=== PATIENT | male | born 1950 | race Caucasian/White ===

== ENCOUNTER 2017-03-30 15:17 | Day surgery (SDC) | payer BC, MEDICARE ==
[2017-03-30] MEDS ORDERED: FENTANYL CITRATE INJ/PF 100 MCG/2 ML AMPUL ONE (15:34)
[2017-03-30] MEDS ORDERED: NALOXONE HCL INJ/PF 0.4 MG/1 ML SDV ONE (15:34)
[2017-03-30] MEDS ORDERED: FLUMAZENIL INJ 0.5 MG/5 ML VIAL ONE (15:35)
[2017-03-30] MEDS ORDERED: EPINEPHRINE INJ 1 MG/10 ML DISP.SYRIN ONE (15:35)
[2017-03-30] MEDS ORDERED: GLUCAGON,HUMAN RECOMB 1 MG INJ ONE (15:35)
[2017-03-30] MEDS: MIDAZOLAM 2 MG/2 ML INJ ONE ×3 (16:35→16:44)
--- NOTE | 2017-03-30 17:13 | Operative Report ---
Operative Report DATE OF SURGERY: 03/30/17 Operative Report: Pre-op diagnosis: History of large esophageal varices intolerant to beta- blockers Post-op diagnosis: Large mid and distal esophageal varices grade F3 Surgery: Esophagogastroduodenoscopy with esophageal variceal banding Medications: Versed 4mg Fentanyl 100mcg IV push Tissue removed: None Procedure: After informed consent obtained from patient, the throat was sprayed with Hurricane and conscious sedation was achieved. The upper endoscope was inserted into the esophagus under direct vision and advanced into the stomach. The duodenum was entered and examined to the second part. Endoscope was then slowly pulled out of the patient as the mucosa was examined into details. The Brndstr rubber band kit was then loaded and the scope were inserted into the patient. Rubber bands were applied in the distal esophagus. Patient tolerated procedure well. Findings Esophagus: He had 2-3 columns of large varices that involve the last 20 cm of the esophagus. 6 rubber bands were then applied with no difficulty. Antrum: Normal Body: Normal Fundus: Normal Duodenum first part: Normal Duodenum second part: Normal Plan: Repeat EGD with banding in 4-6 weeks OPERATION: .
[2017-03-30 17:55] VITALS: BP 150/70
== END 2017-03-30 18:05 | disposition home or self-care (01) ==
LOC: END 15:17
PROVIDERS: ATTEND Internal Medicine Gastroenterology
PROC: 06L38CZ Occlusion of Esophageal Vein with Extraluminal Device, Via Natural or Artificial Opening Endoscopic (ICD-10-PCS; principal; 2017-03-30 15:45)
DX: K74.69 Other cirrhosis of liver (principal); I85.00 Esophageal varices without bleeding; B18.2 Chronic viral hepatitis C; Z79.899 Other long term (current) drug therapy; Z88.0 Allergy status to penicillin
CPT/HCPCS: 43244; J2250; J3010; J0171; J1610; J2310; J3490

== ENCOUNTER 2017-05-04 14:56 | Day surgery (SDC) | payer MEDICARE ==
[2017-05-04] MEDS ORDERED: NALOXONE HCL INJ/PF 0.4 MG/1 ML SDV ONE (15:49)
[2017-05-04] MEDS ORDERED: EPINEPHRINE INJ 1 MG/10 ML DISP.SYRIN ONE (15:50)
[2017-05-04] MEDS ORDERED: FLUMAZENIL INJ 0.5 MG/5 ML VIAL ONE (15:50)
[2017-05-04] MEDS ORDERED: FENTANYL CITRATE INJ/PF 100 MCG/2 ML AMPUL ONE (15:50)
[2017-05-04] MEDS ORDERED: GLUCAGON,HUMAN RECOMB 1 MG INJ ONE (15:50)
[2017-05-04] MEDS ORDERED: ONDANSETRON HCL INJ/PF 4 MG/2 ML SDV ONE (16:16)
[2017-05-04] MEDS: MIDAZOLAM 2 MG/2 ML INJ ONE ×3 (16:27→16:33)
--- NOTE | 2017-05-04 16:46 | Operative Report ---
Operative Report DATE OF SURGERY: 05/04/17 Operative Report: Pre-op diagnosis: History of cirrhosis with esophageal varices. Last banding was 5 weeks ago Post-op diagnosis: Esophageal varices Surgery: Esophagogastroduodenoscopy with variceal rubberbanding Medications: Versed 5mg Fentanyl 100mcg IV push Tissue removed: None Procedure: After informed consent obtained from patient, the throat was sprayed with Hurricane and conscious sedation was achieved. The upper endoscope was inserted into the esophagus under direct vision and advanced into the stomach. The duodenum was entered and examined to the second part. Endoscope was then slowly pulled out of the patient as the mucosa was examined into details. Patient tolerated procedure well. Findings Esophagus: Varices were noted in the distal 17 cm of the esophagus. 6 rubber bands were applied Antrum: Normal Body: Evidence for portal gastropathy Fundus: Normal Duodenum first part: Normal Duodenum second part: Normal Plan: Continue omeprazole and repeat EGD in 4-6 weeks OPERATION: .
[2017-05-04 17:47] VITALS: BP 155/83
== END 2017-05-04 17:55 | disposition home or self-care (01) ==
LOC: END 14:56
PROVIDERS: ATTEND Internal Medicine Gastroenterology
PROC: 06L38CZ Occlusion of Esophageal Vein with Extraluminal Device, Via Natural or Artificial Opening Endoscopic (ICD-10-PCS; principal; 2017-05-04 15:30)
DX: I85.00 Esophageal varices without bleeding (principal); K74.60 Unspecified cirrhosis of liver; Z88.0 Allergy status to penicillin; Z79.899 Other long term (current) drug therapy
CPT/HCPCS: 43244; J2250; J3010; J2405; J0171; J1610; J2310; J3490

== ENCOUNTER 2017-06-29 14:48 | Day surgery (SDC) | payer MEDICARE ==
[2017-06-29] MEDS ORDERED: NALOXONE HCL INJ/PF 0.4 MG/1 ML SDV ONE (15:01)
[2017-06-29] MEDS ORDERED: FLUMAZENIL INJ 0.5 MG/5 ML VIAL ONE (15:02)
[2017-06-29] MEDS ORDERED: GLUCAGON,HUMAN RECOMB 1 MG INJ ONE (15:02)
[2017-06-29] MEDS ORDERED: FENTANYL CITRATE INJ/PF 100 MCG/2 ML AMPUL ONE (15:02)
[2017-06-29] MEDS ORDERED: EPINEPHRINE INJ 1 MG/10 ML DISP.SYRIN ONE (15:02)
[2017-06-29 16:07] LABS: HEMATOCRIT 40.3 % (37.9-51.0); HEMOGLOBIN 13.8 g/dL (13.5-17.0); MEAN CORPUSCULAR HEMOGLOBIN 29.8 pg (27.0-33.4); MEAN CORPUSCULAR HGB CONC 34.1 g/dL (32.0-36.0); MEAN CORPUSCULAR VOLUME 87 fl (80-97); RED BLOOD COUNT 4.62 10^6/uL (4.35-5.55); RED CELL DISTRIBUTION WIDTH 14.1 % (11.5-14.0); WHITE BLOOD COUNT 5.1 10^3/uL (4.0-10.5)
[2017-06-29] MEDS ORDERED: ONDANSETRON HCL INJ/PF 4 MG/2 ML SDV ONE ×2 (16:18→16:25)
[2017-06-29 16:19] LABS: ANION GAP 8 (5-19); BLOOD UREA NITROGEN 17 mg/dL (7-20); CALCIUM 9.4 mg/dL (8.4-10.2); CARBON DIOXIDE 27 mmol/L (22-30); CHLORIDE 105 mmol/L (98-107); GLUCOSE 90 mg/dL (75-110); POTASSIUM 4.8 mmol/L (3.6-5.0); SODIUM 140.1 mmol/L (137-145)
[2017-06-29 16:20] LABS: ALANINE AMINOTRANSFERASE 27 U/L (21-72); ALBUMIN 4.2 g/dL (3.5-5.0); ALKALINE PHOSPHATASE 65 U/L (38-126); ASPARTATE AMINO TRANSFERASE 41 U/L (17-59); BILIRUBIN,DIRECT 0.5 mg/dL (0.0-0.4); BILIRUBIN,TOTAL 0.9 mg/dL (0.2-1.3)
[2017-06-29 16:25] LABS: PLATELET COUNT 75 10^3/uL (150-450)
[2017-06-29] MEDS: MIDAZOLAM 2 MG/2 ML INJ ONE ×3 (16:28→16:39)
[2017-06-29 16:33] LABS: PROTHROMBIN TIME 13.9 SEC (11.4-15.4)
--- NOTE | 2017-06-29 17:02 | Operative Report ---
Operative Report DATE OF SURGERY: 06/29/17 Operative Report: Pre-op diagnosis: History of cirrhosis and esophageal varices Post-op diagnosis: Esophageal varices grade F2-3 Surgery: Esophagogastroduodenoscopy with banding Medications: Versed 5mg Fentanyl 100 mcg IV push Tissue removed: None Procedure: After informed consent obtained from patient, the throat was sprayed with Hurricane and conscious sedation was achieved. The upper endoscope was inserted into the esophagus under direct vision and advanced into the stomach. The duodenum was entered and examined to the second part. The endoscope was then pulled out and a rubber band kit was loaded. Endoscope was then slowly pulled out of the patient as the mucosa was examined into details. Patient tolerated procedure well. Findings Esophagus: He has moderate size varices involving the last 15 cm of the esophagus with areas of scarring from previous banding. 6 rubber bands were applied. The GE junction was at 40 cm. Antrum: Normal Body: Normal Fundus: Normal Duodenum first part: Normal Duodenum second part: Normal Plan: Repeat EGD with banding in 4-6 weeks OPERATION: .
[2017-06-29] MEDS ORDERED: OXYCODONE-ACETAMINOPHEN 5-325 MG TABLET ONE (17:25)
[2017-06-29 18:25] VITALS: BP 153/85
== END 2017-06-29 18:30 | disposition home or self-care (01) ==
LOC: END 14:48
PROVIDERS: ATTEND Internal Medicine Gastroenterology
PROC: 06L38CZ Occlusion of Esophageal Vein with Extraluminal Device, Via Natural or Artificial Opening Endoscopic (ICD-10-PCS; principal; 2017-06-29 15:30)
DX: I85.00 Esophageal varices without bleeding (principal); K74.60 Unspecified cirrhosis of liver; B19.20 Unspecified viral hepatitis C without hepatic coma; Z88.0 Allergy status to penicillin
CPT/HCPCS: 43244; 36415; 85027; 85610; 80076; 80048; J2250; J3010; A9270; J2405; J0171; J1610; J2310; J3490

== ENCOUNTER 2017-08-24 15:00 | Day surgery (SDC) | payer MEDICARE ==
[2017-08-24] MEDS ORDERED: MIDAZOLAM 2 MG/2 ML INJ ONE (15:04)
[2017-08-24] MEDS ORDERED: NALOXONE HCL INJ/PF 0.4 MG/1 ML SDV ONE (15:04)
[2017-08-24] MEDS ORDERED: FLUMAZENIL INJ 0.5 MG/5 ML VIAL ONE (15:05)
[2017-08-24] MEDS ORDERED: FENTANYL CITRATE INJ/PF 100 MCG/2 ML AMPUL ONE (15:05)
[2017-08-24] MEDS ORDERED: EPINEPHRINE INJ 1 MG/10 ML DISP.SYRIN ONE (15:05)
[2017-08-24] MEDS ORDERED: GLUCAGON,HUMAN RECOMB 1 MG INJ ONE (15:05)
[2017-08-24] MEDS ORDERED: ONDANSETRON HCL INJ/PF 4 MG/2 ML SDV ONE (15:07)
[2017-08-24 16:09] LABS: INTERNATIONAL RATION (INR) 0.98; PROTHROMBIN TIME 13.7 SEC (11.4-15.4)
[2017-08-24 16:17] LABS: ALANINE AMINOTRANSFERASE 34 U/L (21-72); ALBUMIN 4.1 g/dL (3.5-5.0); ALKALINE PHOSPHATASE 75 U/L (38-126); ANION GAP 8 (5-19); ASPARTATE AMINO TRANSFERASE 38 U/L (17-59); BILIRUBIN,DIRECT 0.4 mg/dL (0.0-0.4); BLOOD UREA NITROGEN 19 mg/dL (7-20); CALCIUM 9.6 mg/dL (8.4-10.2); CARBON DIOXIDE 25 mmol/L (22-30); CHLORIDE 107 mmol/L (98-107); GLUCOSE 84 mg/dL (75-110); POTASSIUM 4.2 mmol/L (3.6-5.0); SODIUM 139.7 mmol/L (137-145)
[2017-08-24] MEDS: MIDAZOLAM 2 MG/2 ML INJ ONE ×3 (16:18→16:28)
--- NOTE | 2017-08-24 16:47 | Operative Report ---
Operative Report DATE OF SURGERY: 08/24/17 Operative Report: Pre-op diagnosis: History of cirrhosis and esophageal varices Post-op diagnosis: Esophageal varices Surgery: Esophagogastroduodenoscopy with variceal rubberbanding Medications: Versed 5mg Fentanyl mcg IV push Tissue removed: None Procedure: After informed consent obtained from patient, the throat was sprayed with Hurricane and conscious sedation was achieved. The upper endoscope was inserted into the esophagus under direct vision and advanced into the stomach. The duodenum was entered and examined to the second part. Endoscope was then slowly pulled out of the patient as the mucosa was examined into details. Patient tolerated procedure well. Findings Esophagus: 2 columns of moderate-sized varices were identified in the mid esophagus with scarring noted in the distal esophagus from previous banding. 5 rubber bands were placed over these 2 varices. Antrum: Normal Body: Normal Fundus: Normal Duodenum first part: Normal Duodenum second part: Normal Plan: Repeat banding in 4 weeks OPERATION: .
[2017-08-24] MEDS ORDERED: OXYCODONE-ACETAMINOPHEN 5-325 MG TABLET ONE (17:10)
[2017-08-24 18:35] VITALS: BP 153/90
[2017-08-24 19:04] LABS: HEMATOCRIT 42.1 % (37.9-51.0); HEMOGLOBIN 14.6 g/dL (13.5-17.0); MEAN CORPUSCULAR HEMOGLOBIN 29.9 pg (27.0-33.4); MEAN CORPUSCULAR HGB CONC 34.5 g/dL (32.0-36.0); MEAN CORPUSCULAR VOLUME 87 fl (80-97); RED BLOOD COUNT 4.86 10^6/uL (4.35-5.55); RED CELL DISTRIBUTION WIDTH 14.8 % (11.5-14.0); WHITE BLOOD COUNT 6.4 10^3/uL (4.0-10.5)
[2017-08-24 19:22] LABS: PLATELET COUNT 78 10^3/uL (150-450)
[2017-08-26 07:41] LABS: HEPATITIS C VIRUS AB >11.0 s/co ratio (0.0-0.9)
== END 2017-08-24 18:45 | disposition home or self-care (01) ==
LOC: END 15:00
PROVIDERS: ATTEND Internal Medicine Gastroenterology
DX: I85.00 Esophageal varices without bleeding (principal); K74.60 Unspecified cirrhosis of liver; B19.20 Unspecified viral hepatitis C without hepatic coma; Z88.0 Allergy status to penicillin
CPT/HCPCS: 43244; 36415; 85027; 85610; 80053; 86803; 86804; J2250; J3010; A9270; J2405; J0171; J1610; J2310; J3490

== ENCOUNTER → 2017-08-30 | Outpatient (CLI) | payer MEDICARE ==
--- NOTE | 2017-08-30 13:23 | RADIOLOGY REPORT (SQ) ---
EXAM DESCRIPTION: CT ABD/PELVIS WITH IV ORAL COMPLETED DATE/TIME: 08/30/2017 1:03 pm REASON FOR STUDY: CHRONIC HEP C (B18.2), CIRRHOSIS (K74.69), ABD PAIN (R10.9) B18.2 CHRONIC VIRAL H EPATITIS C K74.69 OTHER CIRRHOSIS OF LIVER R10.9 UNSPECIFIED ABDOMINAL PAIN COMPARISON: None. TECHNIQUE: CT scan of the abdomen and pelvis performed with intravenous and oral contrast using will sylvester scanning technique with dynamic intravenous contrast injection. Images reviewed with lung, soft t issue, and bone windows. Reconstructed coronal and sagittal MPR images reviewed. Delayed images for e valuation of the urinary system also acquired. All images stored on PACS. All CT scanners at this facility use dose modulation, iterative reconstruction, and/or weight based d osing when appropriate to reduce radiation dose to as low as reasonably achievable (ALARA). [facility]: Dose Right [facility]: CareDose [facility]: Dose Right [facility]: Teradose 4D [facility]: [employer] CONTRAST TYPE AND DOSE: contrast/concentration: Isovue 370.00 mg/ml; Total Contrast Delivered: 100.0 ml; Total Saline Delivered: 72.0 ml RENAL FUNCTION: None available. RADIATION DOSE: CT Rad equipment meets quality standard of care and radiation dose reduction techniq ues were employed. CTDIvol: 10.7 - 12.6 mGy. DLP: 1199 mGy-cm. . LIMITATIONS: None. FINDINGS: LOWER CHEST: Esophageal varices. LIVER: Sub capsular nodularity. SPLEEN: Upper limits normal in size. No focal lesions. PANCREAS: No masses. No significant calcifications. No adjacent inflammation or peripancreatic fluid collections. Pancreatic duct not dilated. GALLBLADDER: No identified stones by CT criteria. No inflammatory changes to suggest cholecystitis. ADRENAL GLANDS: No significant masses or asymmetry. RIGHT KIDNEY AND URETER: No solid masses. No significant calcifications. No hydronephrosis or hyd roureter. LEFT KIDNEY AND URETER: No solid masses. No significant calcifications. No hydronephrosis or hydr oureter. AORTA AND VESSELS: No aneurysm. No dissection. Renal arteries, SMA, celiac without stenosis. RETROPERITONEUM: No retroperitoneal adenopathy, hemorrhage or masses. BOWEL AND PERITONEAL CAVITY: No obstruction. No visualized masses. No free fluid. No inflammatory ch anges or thickening of bowel wall. APPENDIX: Surgically absent. PELVIS: No significant masses. Normal bladder. No free fluid. ABDOMINAL WALL: Prior pelvic hernia repair. Small umbilical hernia containing fat. BONES: No significant or acute findings. OTHER: No other significant finding. IMPRESSION: Cirrhosis. Portal hypertension with large esophageal varices. No ascites. TECHNICAL DOCUMENTATION: JOB ID: [id number] Quality ID # [id number]: Final reports with documentation of one or more dose reduction techniques (e.g., Au tomated exposure control, adjustment of the mA and/or kV according to patient size, use of iterative reconstruction technique) 2010 [employer]- All Rights Reserved Reading location - IP/workstation name: [email or web address]
== END ==
LOC: RAD 12:31
PROVIDERS: ATTEND Internal Medicine Gastroenterology
DX: B18.2 Chronic viral hepatitis C (principal); K74.69 Other cirrhosis of liver; K76.6 Portal hypertension; I85.10 Secondary esophageal varices without bleeding; R10.9 Unspecified abdominal pain
CPT/HCPCS: 74177

== ENCOUNTER 2017-10-05 15:13 | Day surgery (SDC) | payer MEDICARE ==
[~2017-10-05 15:13] MED LIST: EPINEPHRINE INJ 1 MG/10 ML DISP.SYRIN ONE; FENTANYL CITRATE INJ/PF 100 MCG/2 ML AMPUL ONE; FLUMAZENIL INJ 0.5 MG/5 ML VIAL ONE; GLUCAGON,HUMAN RECOMB 1 MG INJ ONE; NALOXONE HCL INJ/PF 0.4 MG/1 ML SDV ONE
[2017-10-05] MEDS ORDERED: ONDANSETRON HCL INJ/PF 4 MG/2 ML SDV ONE (16:30)
[2017-10-05] MEDS: MIDAZOLAM 2 MG/2 ML INJ ONE ×3 (16:44→16:50)
--- NOTE | 2017-10-05 17:11 | Operative Report ---
Operative Report DATE OF SURGERY: 10/05/17 Operative Report: Pre-op diagnosis: History of esophageal varices and cirrhosis Post-op diagnosis: Esophageal varices Surgery: Esophagogastroduodenoscopy with banding Medications: Versed 6mg Fentanyl 100 mcg IV push Tissue removed: None Procedure: After informed consent obtained from patient, the throat was sprayed with Hurricane and conscious sedation was achieved. The upper endoscope was inserted into the esophagus under direct vision and advanced into the stomach. The duodenum was entered and examined to the second part. Endoscope was then slowly pulled out of the patient as the mucosa was examined into details. Patient tolerated procedure well. Findings Esophagus: Short columns of moderate size varices were noted in the distal half of the esophagus with areas of scarring from previous banding. 6 rubber bands were then placed without any difficulty. Antrum: Evidence of portal gastropathy Body: Normal Fundus: Normal Duodenum first part: Normal Duodenum second part: Normal Plan: Repeat EGD in 6 months OPERATION: .
[2017-10-05] MEDS ORDERED: OXYCODONE-ACETAMINOPHEN 5-325 MG TABLET ONE (17:23)
[2017-10-05 18:28] VITALS: BP 126/88
== END 2017-10-05 18:30 | disposition home or self-care (01) ==
LOC: END 15:13
PROVIDERS: ATTEND Internal Medicine Gastroenterology
DX: I85.00 Esophageal varices without bleeding (principal); K74.60 Unspecified cirrhosis of liver; Z88.0 Allergy status to penicillin
CPT/HCPCS: 43244; J2250; J3010; A9270; J2405; J0171; J1610; J2310; J3490

== ENCOUNTER 2018-06-21 15:04 | Day surgery (SDC) | payer MEDICARE ==
[2018-06-21] MEDS ORDERED: ONDANSETRON HCL INJ/PF 4 MG/2 ML SDV ONE (15:43)
[2018-06-21] MEDS ORDERED: FENTANYL CITRATE INJ/PF 100 MCG/2 ML AMPUL ONE (15:43)
[2018-06-21] MEDS ORDERED: NALOXONE HCL INJ/PF 0.4 MG/1 ML SDV ONE (15:43)
[2018-06-21] MEDS ORDERED: FLUMAZENIL INJ 0.5 MG/5 ML VIAL ONE (15:43)
[2018-06-21] MEDS ORDERED: DIPHENHYDRAMINE HCL 50 MG/ML VIAL ONE (15:43)
[2018-06-21] MEDS ORDERED: EPINEPHRINE INJ 1 MG/10 ML DISP.SYRIN ONE (15:44)
[2018-06-21] MEDS ORDERED: GLUCAGON,HUMAN RECOMB 1 MG INJ ONE (15:44)
[2018-06-21] MEDS: MIDAZOLAM 2 MG/2 ML INJ ONE ×3 (16:34→16:40)
--- NOTE | 2018-06-21 16:52 | Operative Report ---
Operative Report DATE OF SURGERY: 06/21/18 Operative Report: Pre-op diagnosis: History of esophageal varices Post-op diagnosis: Small distal esophageal varix Surgery: Esophagogastroduodenoscopy Medications: Versed 4mg Fentanyl 100mcg IV push Tissue removed: None Procedure: After informed consent obtained from patient, the throat was sprayed with Hurricane and conscious sedation was achieved. The upper endoscope was inserted into the esophagus under direct vision and advanced into the stomach. The duodenum was entered and examined to the second part. Endoscope was then slowly pulled out of the patient as the mucosa was examined into details. Patient tolerated procedure well. Findings Esophagus: Evidence of scarring was noted in the mid and distal esophagus. There is small column of varix was identified in the distal esophagus. Antrum: Normal Body: Normal Fundus: Normal Duodenum first part: Normal Duodenum second part: Normal Plan: Repeat EGD with possible banding in 1 year OPERATION: .
[2018-06-21 18:15] VITALS: BP 119/70
[2018-06-21 18:20] LABS: HEMATOCRIT 40.4 % (37.9-51.0); HEMOGLOBIN 13.8 g/dL (13.5-17.0); INTERNATIONAL RATION (INR) 1.03; MEAN CORPUSCULAR HEMOGLOBIN 29.6 pg (27.0-33.4); MEAN CORPUSCULAR VOLUME 87 fl (80-97); RED BLOOD COUNT 4.65 10^6/uL (4.35-5.55); RED CELL DISTRIBUTION WIDTH 14.4 % (11.5-14.0); WHITE BLOOD COUNT 5.1 10^3/uL (4.0-10.5)
[2018-06-21 18:22] LABS: PLATELET COUNT 73 10^3/uL (150-450)
[2018-06-21 18:35] LABS: ALANINE AMINOTRANSFERASE 35 U/L (21-72); ALBUMIN 4.3 g/dL (3.5-5.0); ALKALINE PHOSPHATASE 69 U/L (38-126); ANION GAP 6 (5-19); ASPARTATE AMINO TRANSFERASE 38 U/L (17-59); BILIRUBIN,DIRECT 0.2 mg/dL (0.0-0.4); BILIRUBIN,TOTAL 0.8 mg/dL (0.2-1.3); BLOOD UREA NITROGEN 16 mg/dL (7-20); CALCIUM 9.2 mg/dL (8.4-10.2); CARBON DIOXIDE 28 mmol/L (22-30); CHLORIDE 105 mmol/L (98-107); GLUCOSE 117 mg/dL (75-110); POTASSIUM 4.2 mmol/L (3.6-5.0); SODIUM 138.5 mmol/L (137-145); TOTAL PROTEIN 6.9 g/dL (6.3-8.2)
== END 2018-06-21 18:01 | disposition home or self-care (01) ==
LOC: END 15:04
PROVIDERS: ATTEND Internal Medicine Gastroenterology
DX: I85.00 Esophageal varices without bleeding (principal); K74.69 Other cirrhosis of liver; K76.6 Portal hypertension; D69.6 Thrombocytopenia, unspecified; B19.20 Unspecified viral hepatitis C without hepatic coma; E66.9 Obesity, unspecified; Z68.30 Body mass index [BMI] 30.0-30.9, adult; Z79.899 Other long term (current) drug therapy
CPT/HCPCS: 43235; 36415; 85027; 85610; 80076; 80048; J2250; J3010; J2405; J0171; J1200; J1610; J2310; J3490

== ENCOUNTER → 2018-06-29 | Outpatient (CLI) | payer MEDICARE ==
[2018-06-29 12:51] LABS: HEMATOCRIT 42.9 % (37.9-51.0); MEAN CORPUSCULAR HEMOGLOBIN 30.3 pg (27.0-33.4); MEAN CORPUSCULAR HGB CONC 34.9 g/dL (32.0-36.0); MEAN CORPUSCULAR VOLUME 87 fl (80-97); RED BLOOD COUNT 4.95 10^6/uL (4.35-5.55); RED CELL DISTRIBUTION WIDTH 14.3 % (11.5-14.0); WHITE BLOOD COUNT 8.3 10^3/uL (4.0-10.5)
[2018-06-29 13:02] LABS: ALANINE AMINOTRANSFERASE 32 U/L (21-72); ALBUMIN 4.7 g/dL (3.5-5.0); ALKALINE PHOSPHATASE 57 U/L (38-126); ANION GAP 8 (5-19); ASPARTATE AMINO TRANSFERASE 40 U/L (17-59); BILIRUBIN,DIRECT 0.2 mg/dL (0.0-0.4); BILIRUBIN,TOTAL 1.7 mg/dL (0.2-1.3); BLOOD UREA NITROGEN 15 mg/dL (7-20); CALCIUM 9.5 mg/dL (8.4-10.2); CARBON DIOXIDE 30 mmol/L (22-30); CHLORIDE 103 mmol/L (98-107); GLUCOSE 99 mg/dL (75-110); POTASSIUM 4.2 mmol/L (3.6-5.0); SODIUM 140.7 mmol/L (137-145); TOTAL PROTEIN 7.6 g/dL (6.3-8.2)
[2018-06-29 13:54] LABS: PLATELET COUNT 95 10^3/uL (150-450)
--- NOTE | 2018-06-29 15:48 | RADIOLOGY REPORT (SQ) ---
EXAM DESCRIPTION: CT ABDOMEN WITH IV ORAL CONT COMPLETED DATE/TIME: 06/29/2018 2:12 pm REASON FOR STUDY: K74.69 OTHER CIRRHOSIS OF LIVER R10.811 RIGHT UPPER QUADRANT ABDOMINAL TEND K74.69 OTHER CIRRHOSIS OF LIVER R10.811 RIGHT UPPER QUADRANT ABDOMINAL TENDERNESS COMPARISON: 08/30/2017 TECHNIQUE: CT scan of the abdomen performed with intravenous and with oral contrast using helical sc anning technique with dynamic intravenous contrast injection. Images reviewed with lung, soft tissue, and bone windows. Reconstructed coronal and sagittal MPR images reviewed. Delayed images for evaluat ion of the urinary system also acquired and evaluated. All images stored on PACS. All CT scanners at this facility use dose modulation, iterative reconstruc tion, and/or weight based dosing when appropriate to reduce radiation dose to as low as reasonably ac hievable (ALARA). [facility]: Dose Right [facility]: CareDose [facility]: Dose Right [facility]: Teradose 4D [facility]: [employer] CONTRAST TYPE AND DOSE: contrast/concentration: Isovue 350.00 mg/ml; Total Contrast Delivered: 100.0 ml; Total Saline Delivered: 72.0 ml RENAL FUNCTION: BUN 15 creatinine 1.07 RADIATION DOSE: CT Rad equipment meets quality standard of care and radiation dose reduction techniq ues were employed. CTDIvol: 13.8 - 16.4 mGy. DLP: 1113 mGy-cm. . LIMITATIONS: None. FINDINGS: LOWER CHEST: There is some linear atelectasis in the right lower lobe. LIVER: The margins of the liver are somewhat nodular in appearance. No masses. There are esophageal varices. SPLEEN: Splenomegaly. PANCREAS: No masses. No significant calcifications. No adjacent inflammation or peripancreatic fluid collections. Pancreatic duct not dilated. GALLBLADDER: No identified stones by CT criteria. No inflammatory changes to suggest cholecystitis. ADRENAL GLANDS: No significant masses or asymmetry. RIGHT KIDNEY AND URETER: No solid masses. No significant calcifications. No hydronephrosis or hyd roureter. LEFT KIDNEY AND URETER: No solid masses. No significant calcifications. No hydronephrosis or hydr oureter. AORTA AND VESSELS: No aneurysm. No dissection. Renal arteries, SMA, celiac without stenosis. RETROPERITONEUM: No retroperitoneal adenopathy, hemorrhage or masses. BOWEL AND PERITONEAL CAVITY: Mild diverticulosis. No acute inflammation. APPENDIX: Not included. ABDOMINAL WALL: Small umbilical hernia contains only fat. BONES: No significant or acute findings. OTHER: No other significant finding. IMPRESSION: Hepatic cirrhosis. Esophageal varices. Splenomegaly. Mild diverticulosis. No acute f indings in the abdomen or pelvis. Small umbilical hernia. TECHNICAL DOCUMENTATION: JOB ID: [id number] Quality ID # [id number]: Final reports with documentation of one or more dose reduction techniques (e.g., Au tomated exposure control, adjustment of the mA and/or kV according to patient size, use of iterative reconstruction technique) 2010 [employer] All Rights Reserved Reading location - IP/workstation name: [email or web address]
== END ==
LOC: RAD 14:48
PROVIDERS: ATTEND Internal Medicine Gastroenterology
DX: K74.69 Other cirrhosis of liver (principal); R10.811 Right upper quadrant abdominal tenderness
CPT/HCPCS: 36415; 74160; 80053; 85027

== ENCOUNTER → 2019-08-09 | Outpatient (CLI) | payer MEDICARE ==
--- NOTE | 2019-08-09 12:12 | RADIOLOGY REPORT (SQ) ---
EXAM DESCRIPTION: CT ABD/PELVIS COMBO COMPLETED DATE/TIME: 08/09/2019 8:04 am REASON FOR STUDY: CIRRHOSIS, NON-ALCOHOL (K74.69), PORTAL HTN (K76.6) K74.69 OTHER CIRRHOSIS OF NARINDER ER K76.6 PORTAL HYPERTENSION COMPARISON: CT of the abdomen and pelvis from 06/29/2018 TECHNIQUE: CT scan of the abdomen and pelvis performed with and without intravenous contrast, and wi thout oral contrast. Contrasted imaging performed helical scanning technique and dynamic intravenous contrast injection. Images reviewed with lung, soft tissue, and bone windows. Reconstructed coronal a nd sagittal MPR images reviewed. Delayed images for evaluation of the urinary system also acquired. A ll images stored on PACS. All CT scanners at this facility use dose modulation, iterative reconstruction, and/or weight based d osing when appropriate to reduce radiation dose to as low as reasonably achievable (ALARA). [facility]: Dose Right [facility]: CareDose [facility]: Dose Right [facility]: Teradose 4D [facility]: [employer] CONTRAST TYPE AND DOSE: Contrast/concentration: Isovue 350.00 mg/ml; Total Contrast Delivered: 62.0 ml; Total Saline Delivered: 80.0 ml RENAL FUNCTION: Creatinine 1 milligram/deciliter. RADIATION DOSE: CT Rad equipment meets quality standard of care and radiation dose reduction techniq ues were employed. CTDIvol: 16.6 - 22.2 mGy. DLP: 3653 mGy-cm. . LIMITATIONS: None. FINDINGS: NON-CONTRASTED IMAGING: There is no CT evidence of hepatic steatosis. There is no nephrol ithiasis or ureterolithiasis. POST-CONTRASTED IMAGING: LOWER CHEST: LIVER: The morphology of the liver is cirrhotic. There is a standard hepatic arterial branch pattern . There is no had not hepatic mass. The portal veins are patent. SPLEEN: The spleen is enlarged and it measures 17.1 cm in AP diameter. There is an accessory splenul e inferior and posterior to the spleen that measures 9 mm. PANCREAS: No acute abnormality. GALLBLADDER: No abnormality that is apparent on CT. ADRENAL GLANDS: No mass or asymmetry. RIGHT KIDNEY AND URETER: No solid mass, hydronephrosis, nephrolithiasis, hydroureter or ureterolithi asis. LEFT KIDNEY AND URETER: No solid mass, hydronephrosis, nephrolithiasis, hydroureter or ureterolithias is. AORTA AND VESSELS: No aneurysm of the abdominal aorta. There are paraesophageal varices. RETROPERITONEUM: No retroperitoneal adenopathy, hemorrhage or mass. BOWEL AND PERITONEAL CAVITY: Mild circumferential mural thickening involving the cecum and ascending colon. There is a trace amount of ascites and colonic diverticulosis without diverticulitis. APPENDIX: Unable to identify the appendix. PELVIS: The urinary bladder is partially distended. The prostate gland is enlarged. ABDOMINAL WALL: Surgical clips in the left ventral abdomen - correlate for prior herniorrhaphy. Ther e are fat-containing paraumbilical and and right inguinal hernias. BONES: Chronic wedge compression deformities of the T11, T8 and T7 vertebral bodies. OTHER: No other finding. IMPRESSION: 1. Cirrhosis with sequela of portal hypertension including splenomegaly, paraesophageal hernias and portal hypertensive colopathy. There is no hepatic mass. 2. Colonic diverticulosis without diverticulitis. TECHNICAL DOCUMENTATION: JOB ID: [id number] Quality ID # 436: Final reports with documentation of one or more dose reduction techniques (e.g., Au tomated exposure control, adjustment of the mA and/or kV according to patient size, use of iterative reconstruction technique) 2010 [employer]- All Rights Reserved Reading location - IP/workstation name: [email or web address]
== END ==
LOC: RAD 07:34
PROVIDERS: ATTEND Internal Medicine Gastroenterology
DX: K74.69 Other cirrhosis of liver (principal); K76.6 Portal hypertension; K57.30 Diverticulosis of large intestine without perforation or abscess without bleeding
CPT/HCPCS: 74178; 82565

== ENCOUNTER 2019-08-15 15:24 | Day surgery (SDC) | payer MEDICARE ==
[2019-08-15] MEDS ORDERED: ONDANSETRON HCL INJ/PF 4 MG/2 ML SDV ONE (15:56)
[2019-08-15] MEDS ORDERED: NALOXONE HCL INJ/PF 0.4 MG/1 ML SDV ONE (15:56)
[2019-08-15] MEDS ORDERED: DIPHENHYDRAMINE HCL 50 MG/ML VIAL ONE (15:56)
[2019-08-15] MEDS ORDERED: FENTANYL CITRATE INJ/PF 100 MCG/2 ML AMPUL ONE (15:56)
[2019-08-15] MEDS ORDERED: GLUCAGON,HUMAN RECOMB 1 MG INJ ONE (15:57)
[2019-08-15] MEDS ORDERED: FLUMAZENIL INJ 0.5 MG/5 ML VIAL ONE (15:57)
[2019-08-15] MEDS ORDERED: EPINEPHRINE INJ 1 MG/10 ML DISP.SYRIN ONE (15:57)
[2019-08-15] MEDS: MIDAZOLAM 2 MG/2 ML INJ ONE ×2 (16:55→17:00)
[2019-08-15 17:08] LABS: HEMATOCRIT 42.4 % (37.9-51.0); HEMOGLOBIN 14.5 g/dL (13.5-17.0); MEAN CORPUSCULAR HEMOGLOBIN 29.5 pg (27.0-33.4); MEAN CORPUSCULAR HGB CONC 34.1 g/dL (32.0-36.0); MEAN CORPUSCULAR VOLUME 86 fl (80-97); RED BLOOD COUNT 4.91 10^6/uL (4.35-5.55); RED CELL DISTRIBUTION WIDTH 14.3 % (11.5-14.0)
--- NOTE | 2019-08-15 17:15 | Operative Report ---
Operative Report DATE OF SURGERY: 08/15/19 Operative Report: Pre-op diagnosis: History of esophageal varices and cirrhosis Post-op diagnosis: Small esophageal varices Surgery: Esophagogastroduodenoscopy with biopsy Medications: Versed 3mg Fentanyl 100 Mcg IV push Tissue removed: Antral biopsy for pathology Procedure: After informed consent obtained from patient, the throat was sprayed with Hurricane and conscious sedation was achieved. The upper endoscope was inserted into the esophagus under direct vision and advanced into the stomach. The duodenum was entered and examined to the second part. Endoscope was then slowly pulled out of the patient as the mucosa was examined into details. Patient tolerated procedure well. Findings Esophagus: There was scarring noted in the distal half of the esophagus from previous rubber banding. Two short small columns of varix was identified. No rubber bands were placed Antrum: Normal Body: Normal Fundus: Normal Duodenum first part: Normal Duodenum second part: Normal Plan: Await pathology. Repeat EGD in 1 year OPERATION: .
[2019-08-15 17:19] LABS: ALBUMIN 4.3 g/dL (3.5-5.0); ALKALINE PHOSPHATASE 67 U/L (38-126); ASPARTATE AMINO TRANSFERASE 39 U/L (17-59); BILIRUBIN,TOTAL 0.8 mg/dL (0.2-1.3); TOTAL PROTEIN 7.2 g/dL (6.3-8.2)
[2019-08-15 17:25] LABS: INTERNATIONAL RATION (INR) 1.14; PROTHROMBIN TIME 14.6 SEC (11.4-15.4)
[2019-08-15 17:43] LABS: PLATELET COUNT 81 10^3/uL (150-450)
[2019-08-15 18:05] VITALS: BP 116/82
== END 2019-08-15 18:06 | disposition home or self-care (01) ==
LOC: END 15:24
PROVIDERS: ATTEND Internal Medicine Gastroenterology
DX: I85.00 Esophageal varices without bleeding (principal); K29.50 Unspecified chronic gastritis without bleeding; B18.2 Chronic viral hepatitis C; K74.69 Other cirrhosis of liver; K76.6 Portal hypertension; Z79.899 Other long term (current) drug therapy; Z88.0 Allergy status to penicillin
CPT/HCPCS: 43239; 36415; 85027; 85610; 80076; 88342 ×2; 88305 ×2; J2250; J3010; J2405; J0171; J1200; J1610; J2310; J3490